=== PATIENT | female | born 1995 | race Caucasian/White ===

== ENCOUNTER 2017-01-19 18:37 | Emergency (ER) | payer OTHER ==
[2017-01-19 18:46] VITALS: BP 119/83; PULSE 108; TEMP 99.6; BMI 30.2
--- NOTE | 2017-01-19 20:12 | PDOC ---
History of Present Illness - General Chief Complaint: Abscess Boil Stated Complaint: BACK PAIN Time Seen by Provider: 01/19/17 19:41 History Source: Patient Exam Limitations: No Limitations - History of Present Illness Initial Comments: 01/19/17 20:01 Patient is a 21-year-old female, history of pilonidal cyst presents with pain to gluteal cleft. Recurrent pilonidal. No fever. Past Medical History: Denies. Allergies: No known allergies Medications: None Family History: Non-contributory Social History: Denies smoking, alcohol use, or IVDU Vital signs on arrival are notable for pulse of 108. Review of Systems GENERAL/CONSTITUTIONAL: No fever or chills. No weakness. No weight change. HEAD, EYES, EARS, NOSE AND THROAT: No change in vision. No ear pain or discharge. No sore throat. CARDIOVASCULAR: No chest pain or shortness of breath. RESPIRATORY: No cough, wheezing, or hemoptysis. GASTROINTESTINAL: No nausea, vomiting, diarrhea or constipation. No rectal bleeding. GENITOURINARY: No dysuria, frequency, or change in urination. MUSCULOSKELETAL: No joint or muscle swelling or pain. No neck pain. Pain to the gluteal cleft. SKIN : No rash or easy bruising. Painful area to the gluteal cleft, no edema, no fluctuance area is hard. HEMATOLOGIC/LYMPHATIC: No anemia, easy bleeding, or history of blood clots. No lymphadenopathy. ALLERGIC/IMMUNOLOGIC: No hives or skin allergy. No latex allergy. Physical Exam: GENERAL: The patient is awake, alert, and fully oriented, in no acute distress. HEAD: Normal with no signs of trauma. EYES: Pupils equal, round and reactive to light, extraocular movements intact, sclera anicteric, conjunctiva clear. ENT: Ears normal, nares patent, oropharynx clear without exudates. Moist mucous membranes. No uvula deviation NECK: Normal range of motion, supple without lymphadenopathy, JVD, or masses. LUNGS: Breath sounds equal, clear to auscultation bilaterally. No wheezes, and no crackles. HEART: Regular rate and rhythm, normal S1 and S2 without murmur, rub or gallop. ABDOMEN: Soft, nontender, normoactive bowel sounds. No guarding, no rebound. No masses. No bruising or abrasions RECTAL : Guaiac negative, normal rectal tone. No communication. There is erythema, pain with induration to the gluteal cleft + Pilonidal sinus. No fluctuance. MUSCULOSKELETAL: Normal range of motion, no edema. No clubbing or cyanosis. No cords, erythema, or tenderness. No CVA Tenderness with fist palpation. NEUROLOGICAL: Cranial nerves II through XII grossly intact. Normal speech, normal gait. SKIN: Warm, Dry, normal turgor, no rashes or lesions noted. Pain, erythema near gluteal cleft. Past History - Past Medical History Allergies/Adverse Reactions: Allergies Allergy/AdvReac Type Severity Reaction Status Date / Time No Known Allergies Allergy Verified 01/19/17 18:43 Home Medications: Ambulatory Orders Doxycycline Hyclate 100 mg PO BID #20 capsule 01/19/17 Oxycodone HCl/Acetaminophen [Percocet 5-325 mg Tablet] 1 tab PO Q4H #20 tablet MDD 6 01/19/17 - Psycho/Social/Smoking Cessation Hx Suicidal Ideation: No Smoking History: Never smoked Have you smoked in the past 12 months: No *Physical Exam - Vital Signs Last Vital Signs Temp Pulse Resp BP Pulse Ox 99.6 F 108 H 18 119/83 98 01/19/17 18:43 01/19/17 18:43 01/19/17 18:43 01/19/17 18:43 01/19/17 18:43 Medical Decision Making - Medical Decision Making 01/19/17 20:13 A/P : Patient with pilonidal, third time patient has had this has never been formally drained, spoke to Dr. Romero who will come in to see patient. 01/19/17 22:37 Dr Romero at bedside to drain, Consent obtained. Percocet one tab given IV heplock Doxycycline 100 mg IV 1 01/19/17 22:38 Follow-up instructions in care as per Dr. Romero. Patient discharged to return for wound care tomorrow. Discharged on Percocet and doxycycline I discussed the physical exam findings, ancillary test results and final diagnoses with the patient. I answered all of the patient's questions. The patient was satisfied with the care received and felt comfortable with the discharge plan and treatment plan. The patient will call to arrange follow-up and will return to the Emergency Department with any new, persistent or worsening symptoms. *DC/Admit/Observation/Transfer Diagnosis at time of Disposition: Pilonidal cyst - Discharge Dispostion Admit: No - Prescriptions Prescriptions: Doxycycline Hyclate 100 mg PO BID #20 capsule Oxycodone HCl/Acetaminophen [Percocet 5-325 mg Tablet] 1 tab PO Q4H #20 tablet MDD 6 - Referrals Referrals: Michel Soler MD [Primary Care Provider] - - Patient Instructions Printed Discharge Instructions: Pilonidal Cyst Additional Instructions: Instructions for care and follow up as per Dr. Romero - Post Discharge Activity Work/School Note: Back to Work
[2017-01-19] MEDS ORDERED: OXYCODONE/APAP 5/325MG COMBO TABLET ONE (20:28)
[2017-01-19] MEDS ORDERED: OXYCODONE/APAP 5/325MG COMBO TABLET PO ONE (20:28)
[2017-01-19] MEDS ORDERED: DOXYCYCLINE INJECTION 100 MG in DEXTROSE 5%-WATER - 100 ML IVPB ONE (21:00)
[2017-01-19] MEDS ORDERED: LIDOCAINE 1%/EPI 1:100000 (50 ML MULTI DOSE VIAL) ONE (21:45)
[2017-01-19] MEDS ORDERED: SODIUM BICARBONATE 2.4 MEQ/5 ML SDVIAL ONE (21:47)
[2017-01-19] MEDS ORDERED: SODIUM BICARBONATE 4.2% 5 MEQ/10 ML DISP.SYRIN IVPUSH ONE ×2 (22:06→23:08)
[2017-01-19] MEDS ORDERED: SODIUM BICARBONATE 8.4% - 50 ML ONE (22:07)
[2017-01-19] MEDS ORDERED: LIDOCAINE 1%/EPI 1:100000 (20 ML MULTI DOSE VIAL) INF ONE (23:07)
--- NOTE | 2017-01-19 23:41 | CONSULT ---
Consult Consult Specialty:: General Surgery Referred by:: Nicky Small Reason for Consultation:: pilonidal abscess - History of Present Illness Chief Complaint: pain and swelling at upper gluteal cleft History of Present Illness: 21yo healthy F with h/o pilonidal abscess twice in 2014, first time drained in ER (with needle), second time she thinks doctor just expressed pus by hand, now with third recurrence. Pain started to be significant two days ago, no actual drainage. + BMs, last yesterday, but hurts. No fever/chills, occasional nausea, no vomiting. Temp 99 in ER, no labs. Pt had been told if it came back, she might need to have it removed to keep it from happening again, but never actually pursued formal operation. - History Source History Provided By: Patient Limitations to Obtaining History: No Limitations - Past Medical History ...: No Dermatology: Yes: Other (pilonidal abscess x 2 before) - Past Surgical History Additional Surgical History: ER drainage of pilonidal in past - Alcohol/Substance Use Hx Alcohol Use: No History of Substance Use: reports: None - Smoking History Smoking history: Never smoked Have you smoked in the past 12 months: No - Social History ADL: Independent Home Medications - Allergies Allergies/Adverse Reactions: Allergies Allergy/AdvReac Type Severity Reaction Status Date / Time No Known Allergies Allergy Verified 01/19/17 18:43 - Home Medications Home Medications: Ambulatory Orders Doxycycline Hyclate 100 mg PO BID #20 capsule 01/19/17 Oxycodone HCl/Acetaminophen [Percocet 5-325 mg Tablet] 1 tab PO Q4H #20 tablet MDD 6 01/19/17 Home Medications (free text): none regularly Family Disease History - Family Disease History Family History: Unremarkable Review of Systems - Review of Systems Constitutional: denies: Chills, Fever Eyes: denies: Blurred Vision, Double Vision HENT: denies: Difficult Swallowing, Throat Pain Neck: denies: Decreased ROM, Swollen Glands Cardiovascular: denies: Chest Pain, Shortness of Breath Respiratory: denies: Cough, Wheezing Gastrointestinal: reports: Nausea. denies: Constipation, Diarrhea, Vomiting Genitourinary: reports: Menses (finishing now). denies: Dysuria Musculoskeletal: denies: Back Pain, Muscle Pain Integumentary: reports: Erythema, Lump Neurological: denies: Dizziness, Headache Hematology/Lymphatic: denies: Excessive Bleeding, Swollen Glands Physical Exam Vital Signs: Vital Signs Temperature 99.6 F 01/19/17 18:43 Pulse Rate 108 H 01/19/17 18:43 Respiratory Rate 18 01/19/17 18:43 Blood Pressure 119/83 01/19/17 18:43 O2 Sat by Pulse Oximetry (%) 98 01/19/17 18:43 Constitutional: Yes: Well Nourished, Calm, Mild Distress (secondary to pain) Eyes: Yes: Conjunctiva Clear, EOM Intact HENT: Yes: Atraumatic, Normocephalic Cardiovascular: Yes: Regular Rate and Rhythm. No: Murmur Respiratory: Yes: Regular, CTA Bilaterally Gastrointestinal: Yes: Soft. No: Tenderness ...Rectal Exam: Yes: Deferred Renal/: Yes: Menses Present Musculoskeletal: No: Back Pain, Joint Stiffness Extremities: No: Calf Tenderness, Cold Edema: No Integumentary: Yes: Erythema, Other (pilonidal area with ~0.5cm midline scar with possible pits just above and below, somewhat swollen and fluctuant centrally with 1-2cm of mild erythema to both sides, very tender R>L, + hair present, no drainage) Neurological: Yes: Alert, Oriented Problem List - Problems (1) Pilonidal cyst with abscess Assessment/Plan: pilonidal cyst with recurrent abscess pt given pain med and first dose antibiotic (Doxy) in ER explained to pt and mother need for drainage, wound packing, followup with plan for definitive operation once healing, possibly prior to complete wound closure R/B/A of incision and drainage discussed including bleeding and infection; evacuating pus; antibiotics alone with warm compresses and sitz baths pt agreeable to I&D in ER, informed consent signed procedure performed and tolerated well, wound packed and dressed keep dressing clean and dry until seen next pt to return Monday morning for first dressing change; family member may accompany her to learn packing changes ER to Rx Doxycycline and pain meds prn, pt to take pain med prior to coming for dressing change pt to call office to f/u next Monday in clinic to see Dr. Godwin/colorectal surgeon for wound check and definitive OR planning Thank you for the opportunity to participate in the care of this patient. Code(s): L05.01 - PILONIDAL CYST WITH ABSCESS
--- NOTE | 2017-01-20 00:05 | PROC ---
Incision and Drainage Indication/Location: pilonidal abscess (recurrent), upper gluteal cleft Risks and Benefits Explained: Yes Consent on Chart: Yes Betadine cleansed: Yes Anesthesia: 1% Lidocaine w/ Epi (with Na bicarb half and half x 30ml total, then 15ml of 1% lido + epi alone) Blade Size: 15 Drainage: foul-smelling, purulent, ~20ml Irrigated with Normal Saline: No (irrigated with remaining local anesthetic) Plain packing: Yes (1/ in ) Sterile Dressing Applied: Yes (gauze and tape over) - Remarks Remarks: elliptical sliver of skin removed to encompass previous scar and pit in midline ; manually probed to ensure loculations broken up, small pocket to right of midline, wound deep nearly to coccyx, additional small pocket at upper right; packed with ribbon gauze
== END 2017-01-19 23:15 | disposition home or self-care (01) ==
LOC: JERFT 18:37
PROC: 0H98XZZ Drainage of Buttock Skin, External Approach (ICD-10-PCS; principal; 2017-01-19)
PROC: 3E03329 Introduction of Other Anti-infective into Peripheral Vein, Percutaneous Approach (ICD-10-PCS; 2017-01-19)
DX: L05.01 Pilonidal cyst with abscess (principal)
CPT/HCPCS: 99281-25

== ENCOUNTER 2017-01-21 10:18 | Emergency (ER) | payer OTHER ==
[2017-01-21 10:28] VITALS: BP 143/67; PULSE 104; TEMP 98.2; BMI 30.2
--- NOTE | 2017-01-21 11:13 | PDOC ---
Suture Removal/Wound Check HPI - History of Present Illness Chief Complaint: Revisit,Wound Recheck Stated Complaint: FOLLOWUP/CYST Time Seen by Provider: 01/21/17 11:00 History Source: Yes: Patient Exam Limitations: Yes: No Limitations [facility] Date of Last ED visit: 01/19/17 (I & D pilondial cyst) - Previous ED Treatment Type of procedure performed on last visit: Yes: I&D of Abscess (pilonidal cyst by ) Tetanus Immunization: Yes: Up to Date Antibiotics Prescribed: Yes (doxycline ) - Onset of Previous Treatment Date of Occurence: 01/19/17 Past History - Travel Traveled outside of the country in the last 30 days: No Close contact w/someone who was outside of country & ill: No - Past Medical History Allergies/Adverse Reactions: Allergies No Known Allergies Allergy (Verified 01/21/17 10:28) Home Medications: Ambulatory Orders Doxycycline Hyclate 100 mg PO BID #20 capsule 01/19/17 Oxycodone HCl/Acetaminophen [Percocet 5-325 mg Tablet] 1 tab PO Q4H #20 tablet MDD 6 01/19/17 Ondansetron [Zofran Odt -] 4 mg SL Q8H PRN #9 od.tablet MDD 12 mg 01/21/17 General: Yes: no pertinent history - Social History Smoking Status: Never smoked Suture Removal/Wound Check PE - Physical Exam Laceration/Wound Check Symptoms: reports: Pain (at site of I & D pilondial cyst) Pain Intensity: 10 (at times ) Current Severity Level: Moderate Maximum Severity Level: Severe Comments: 01/21/17 11:46 at site of pilondial cyst I & D Pain radiates to: bilateral: Other Radiation location (at site of pilondial cyst I & D ) Comments: 01/21/17 11:[address] Romero she took out previous packing at pilondial cyst I & D site and cleansed and repacked DSD applied *Review of Systems - Review of Systems Able to Perform ROS?: Yes Constitutional: No: Symptoms Reported HEENTM: No: Symptoms Reported Respiratory: No: Symptoms reported Cardiac (ROS): No: Symptoms Reported : No: Symptoms Reported Integumentary: Yes: Other (at site of pilondial cyst I & D packing in place, dsd ) Procedures - Consent Consent obtained: From Patient - Additional Procedures Progress: 01/21/17 11:49 see consult note from Dr. Barry Medical Decision Making - Medical Decision Making 01/21/17 11:49 Pt. was seen here on 01/19/2017 for Pinondial recurrent cyst this being the third time it recurred. Consult was called with Dr. ROMERO, she did I & D, pain medication and doxycline ordered. Pt. was told to return here for wound check and packing removal. back and was to be notified when she got here. She reports that the area is very painful and that she feels slightly nauseous at times not related to when she takes Percocet. Could be from taking doxycycline. Patient denies any vomiting. Patient denies fever. Wound Check pilondial cyst I & D PLAN: Grandmother was instructed by Dr. Romero wound and was given all materials necessary Will give Zofran 4 mg sublingual every 8 hours as needed for nausea for the next 2 days Patient to continue with Percocet as previously prescribed for pain Patient to continue with antibiotics as previously ordered on 6:15 Patient to call on 01/23/2017 for appt here on 01/25/17 *DC/Admit/Observation/Transfer Diagnosis at time of Disposition: Admission for wound check of abscess - Discharge Dispostion Disposition: HOME Condition at time of disposition: Stable - Patient Instructions Additional Instructions: Call on 01/23/17 Dr. Romero take appointment for 01/25/2017 for clinic here Grandmother repeat packing wound as demonstrated by Dr. Romero after patient showers and dryudith area after repacking apply dry sterile dressing Continue with antibiotics as previously ordered and pain medication Return to emergency room if any fever, chills, worsening pain or any new symptoms develop Patient voiced understanding of discharge instructions and all questions were answered
--- NOTE | 2017-01-21 12:01 | CONSULT ---
Consult Consult Specialty:: General Surgery Referred by:: Francia Swift Reason for Consultation:: packing change from I&D /wound check - History of Present Illness Chief Complaint: recurrent pilonidal abscess History of Present Illness: 21yoF seen in ER night with third pilonidal abscess. Low grade temp, no labs drawn. I&D performed by me in ER with evacuation of pus and packed with 1/4" plain ribbon gauze. Pt returns for wound check/packing change. On Doxycycline, using percocet for pain, c/o some nausea but tolerating diet, having BMs. Accompanied today by grandmother, who plans to assist her with dressing/packing changes daily. - History Source History Provided By: Patient Limitations to Obtaining History: No Limitations - Past Medical History Dermatology: Yes: Other (pilonidal abscess x 2 before) - Alcohol/Substance Use Hx Alcohol Use: No History of Substance Use: reports: None - Smoking History Smoking history: Never smoked Have you smoked in the past 12 months: No - Social History Usual Living Arrangement: With Parent ADL: Independent Home Medications - Allergies Allergies/Adverse Reactions: Allergies Allergy/AdvReac Type Severity Reaction Status Date / Time No Known Allergies Allergy Verified 01/21/17 10:28 - Home Medications Home Medications: Ambulatory Orders Doxycycline Hyclate 100 mg PO BID #20 capsule 01/19/17 Oxycodone HCl/Acetaminophen [Percocet 5-325 mg Tablet] 1 tab PO Q4H #20 tablet MDD 6 01/19/17 Ondansetron [Zofran Odt -] 4 mg SL Q8H PRN #9 od.tablet MDD 12 mg 01/21/17 Family Disease History - Family Disease History Family History: Unremarkable Review of Systems - Review of Systems Constitutional: denies: Chills, Fever Eyes: denies: Blurred Vision, Double Vision HENT: denies: Nasal Congestion, Throat Pain Neck: denies: Lumps, Swollen Glands Cardiovascular: denies: Chest Pain, Shortness of Breath Respiratory: denies: Cough, Wheezing Gastrointestinal: reports: Nausea. denies: Abdominal Pain, Constipation, Diarrhea, Vomiting Genitourinary: reports: Menses (finished). denies: Burning, Dysuria, Frequency Musculoskeletal: denies: Back Pain, Muscle Pain Integumentary: reports: Incision. denies: Rash Neurological: reports: Headache (sometimes). denies: Dizziness Hematology/Lymphatic: denies: Excessive Bleeding, Swollen Glands Physical Exam Vital Signs: Vital Signs Temperature 98.2 F 01/21/17 10:25 Pulse Rate 104 H 01/21/17 10:25 Respiratory Rate 20 01/21/17 10:25 Blood Pressure 143/67 01/21/17 10:25 O2 Sat by Pulse Oximetry (%) 99 01/21/17 10:25 Constitutional: Yes: Well Nourished, Calm, Mild Distress (from pain) Cardiovascular: Yes: Regular Rate and Rhythm. No: Murmur Respiratory: Yes: Regular, CTA Bilaterally Gastrointestinal: Yes: Soft. No: Tenderness ...Rectal Exam: Yes: Deferred, Other (pilonidal dressing in place with blood- staining) Wound/Incision: Yes: Dressing Removed, Bleeding (small amount, stops with pressure), Unapproximated, Other (small bleb at upper left edge and moderate (~ 1cm) rose blister at superior right periwound present; packing removed from wound with serosanguineous drainage/staining. Small bleeding from wound edges, visible part of cavity appears carbonating stone cleaner than initially, no active drainage or pus still present; remains quite tender; incision about 2cm long, opens to about 0.5cm, cavity to about 3cm deep with more extension to right of midline). No: Draining Neurological: Yes: Alert, Oriented Problem List - Problems (1) Pilonidal cyst with abscess Assessment/Plan: s/p I&D 2 nights ago, here for packing change wound beginning to clean up; packing changed, redressed with gauze and tape over Pt's grandmother accompanied her and was taught how to do dressing/packing change daily Pt able to hold incision open for procedure Pt to begin daily shower tomorrow evening with packing removal before or in shower Grandmother will replace packing after and redress daily Pt to continue antibiotic, try half a percocet at a time if they make her too sleepy ER Rx Zofran ODT for nausea prn Pt will call office for f/u appt Monday with Dr. Godwin and myself - s dressing to be done by us Pt tolerated fairly well. Anticipate steady improvement. Code(s): L05.01 - PILONIDAL CYST WITH ABSCESS
== END 2017-01-21 12:35 | disposition home or self-care (01) ==
LOC: JERFT 10:18
DX: L05.01 Pilonidal cyst with abscess (principal)
CPT/HCPCS: 99281-25

== ENCOUNTER 2017-01-27 06:49 | Day surgery (SDC) | payer OTHER ==
[2017-01-27 07:12] VITALS: BMI 30.2
[2017-01-27] MEDS ORDERED: SODIUM CHLORIDE 1,000 ML IV STA (07:20)
--- NOTE | 2017-01-27 07:58 | PDOC ---
History of Present Illness - General Chief Complaint: Pain Stated Complaint: PAIN Time Seen by Provider: 01/27/17 07:19 History Source: Patient - History of Present Illness Timing/Duration: reports: other Past History - Past Medical History Allergies/Adverse Reactions: Allergies Allergy/AdvReac Type Severity Reaction Status Date / Time No Known Allergies Allergy Verified 01/27/17 08:13 Home Medications: Ambulatory Orders Doxycycline Hyclate 100 mg PO BID #20 capsule 01/19/17 Oxycodone HCl/Acetaminophen [Percocet 5-325 mg Tablet] 1 tab PO Q4H #20 tablet MDD 6 01/19/17 Ondansetron [Zofran Odt -] 4 mg SL Q8H PRN #9 od.tablet MDD 12 mg 01/21/17 Other medical history: Pt denies - Psycho/Social/Smoking Cessation Hx Anxiety: No Suicidal Ideation: No Smoking History: Never smoked Have you smoked in the past 12 months: No Information on smoking cessation initiated: No Hx Alcohol Use: No Drug/Substance Use Hx: No Substance Use Type: None *Physical Exam - Vital Signs Last Vital Signs Temp Pulse Resp BP Pulse Ox 98.3 F 66 20 117/73 98 01/27/17 07:07 01/27/17 07:07 01/27/17 07:07 01/27/17 07:07 01/27/17 07:07 ED Treatment Course - LABORATORY CBC & Chemistry Diagram: 01/27/17 07:46 01/27/17 07:46 Medical Decision Making - Medical Decision Making 01/27/17 07:52 21-year-old female, history of recurrent pilonidal abscess, s/p I&D of abscess last week by Dr Romero of surgery and now p/w worsening pain and draining to site. No f/c. See exam Recurrent pilonidal abscess S/P I&D by surgery w/ worsening sxs now -pain control -surgery c/s 01/27/17 08:17 Case d/w Dr Romero who states will take pt to the OR for wide excision/ debridement of cyst today. Pre-op labs pending 01/27/17 08:39 *DC/Admit/Observation/Transfer Diagnosis at time of Disposition: Pilonidal cyst with abscess - Discharge Dispostion Condition at time of disposition: Stable Admit: Yes - Referrals Referrals: Michel Soler MD [Primary Care Provider] -
[2017-01-27 08:09] LABS: BASOPHIL 0.8 % (0-2.0); EOSINOPHIL 3.1 % (0-4.5); MCH 27.2 pg (25.7-33.7); MCHC 32.3 g/dl (32.0-36.0); MEAN CELL VOLUME 84.3 fl (80-96); NEUTROPHILS 47.1 % (42.8-82.8); PLATELET COUNT 301 K/MM3 (134-434); RDW 12.9 % (11.6-15.6); WHITE BLOOD COUNT 8.2 K/mm3 (4.0-10.0)
--- NOTE | 2017-01-27 08:18 | HP ---
Admitting History and Physical - Primary Care Physician PCP: Michel Soler - Admission Chief Complaint: recurrent pilonidal abscess - more pain and continuing drainage History of Present Illness: 21yo generally healthy F seen in ER last night for I&D of third pilonidal abscess. Started on Doxycycline. First packing change done Monday and family has been doing since. Seen in clinic Monday and noted to still have drainage , though less pain, and some necrotic edges to the wound. Recommended formal operation for wide excision and debridement/drainage. Pt was to consider but return to ER if pain and/or drainage worsened. She is still having pain and drainage and returned this morning. She is agreeable now to operation to open it further for definitive treatment. She is NPO since last night's dinner. No fever/chills. No nausea/vomiting. + normal BMs, last this morning. History Source: Patient Limitations to Obtaining History: No Limitations - Past Medical History ...LMP: 01/16/17 (finished last ) ...: No Dermatology: Yes: Other (pilonidal abscess x 2 before) - Past Surgical History Additional Past Surgical History: I&D 01/19 pilonidal by m[place] - Smoking History Smoking history: Never smoked Have you smoked in the past 12 months: No - Alcohol/Substance Use Hx Alcohol Use: No History of Substance Use: reports: None - Social History Usual Living Arrangement: Yes: With Parent ADL: Independent Home Medications - Allergies Allergies/Adverse Reactions: Allergies Allergy/AdvReac Type Severity Reaction Status Date / Time No Known Allergies Allergy Verified 01/21/17 10:28 - Home Medications Home Medications: Ambulatory Orders Doxycycline Hyclate 100 mg PO BID #20 capsule 01/19/17 Oxycodone HCl/Acetaminophen [Percocet 5-325 mg Tablet] 1 tab PO Q4H #20 tablet MDD 6 01/19/17 Ondansetron [Zofran Odt -] 4 mg SL Q8H PRN #9 od.tablet MDD 12 mg 01/21/17 Family Disease History - Family Disease History Family History: Unremarkable Review of Systems - Review of Systems Constitutional: denies: Chills, Fever Eyes: denies: Blurred Vision, Double Vision HENT: denies: Difficult Swallowing, Throat Pain Neck: denies: Swollen Glands, Tenderness Cardiovascular: denies: Chest Pain, Palpitations Respiratory: denies: Cough, SOB Gastrointestinal: denies: Abdominal Pain, Constipation, Diarrhea, Nausea, Vomiting Genitourinary: denies: Burning, Dysuria Musculoskeletal: denies: Joint Pain, Muscle Pain Integumentary: reports: Incision (at sacral area, small opening into moderate cavity, gauze over now as pt removed packing to shower before coming; tender, small necrotic spots at upper left and lower right slightly smaller, cannot appreciate internal character), Wound Neurological: denies: Dizziness, Headache Hematology/Lymphatic: denies: Excessive Bleeding, Swollen Glands Pain Intensity: 5 Physical Examination Vital Signs: Vital Signs Temperature 98.3 F 01/27/17 07:07 Pulse Rate 66 01/27/17 07:07 Respiratory Rate 20 01/27/17 07:07 Blood Pressure 117/73 01/27/17 07:07 O2 Sat by Pulse Oximetry (%) 98 01/27/17 07:07 Constitutional: Yes: Well Nourished, No Distress, Calm Eyes: Yes: Conjunctiva Clear, EOM Intact HENT: Yes: Atraumatic, Normocephalic Cardiovascular: Yes: Regular Rate and Rhythm. No: Murmur Respiratory: Yes: Regular, CTA Bilaterally Gastrointestinal: Yes: Normal Bowel Sounds, Soft. No: Tenderness ...Rectal Exam: Yes: Deferred, Other (pilonidal wound with small opening, moderate cavity, some necrotic patches at edges, needs further opening) Musculoskeletal: No: Back Pain, Joint Swelling Extremities: No: Cold, Erythema Edema: No Peripheral Pulses WNL: Yes Integumentary: Yes: Incision (see above). No: Rash, Tattoos Wound/Incision: Yes: Open to air, Draining (some serosanguineous staining on gauze), Unapproximated, Other (in need of further opening). No: Bleeding Neurological: Yes: Alert, Oriented Labs: cbc, bmp, preg pending Problem List - Problems (1) Pilonidal cyst with abscess Assessment/Plan: Pt POD#8 from I&D of pilonidal abscess, opening is very small, cavity still moderate size and draining some serosanguineous fluid on dressings. Still quite painful. In need of further opening and formal debridement/excision for definitive treatment and to allow healing. Discussed R/B/A of wide excision and debridement of infected pilonidal cyst with patient, including bleeding, infection and pain, and she agrees to OR under general anesthesia. Will give this am's dose of Doxy preop. She will need to continue dressing changes postop , pain meds prn, stool softener prn and few more doses antibiotic. Pt's mother present and also understands plan. Code(s): L05.01 - PILONIDAL CYST WITH ABSCESS
[2017-01-27 08:21] LABS: INR 1.06 (0.82-1.09); PROTHROMBIN TIME (PATIENT) 11.7 SEC (9.98-11.88)
--- NOTE | 2017-01-27 08:32 | PDOC ---
*Physical Exam - Vital Signs Last Vital Signs Temp Pulse Resp BP Pulse Ox 98.2 F 80 16 122/65 100 01/27/17 08:12 01/27/17 08:12 01/27/17 08:12 01/27/17 08:30 01/27/17 08:12 ED Treatment Course - LABORATORY CBC & Chemistry Diagram: 01/27/17 07:46 01/27/17 07:46 - ADDITIONAL ORDERS Additional order review: 01/27/17 07:46 RBC 4.96 MCV 84.3 MCHC 32.3 RDW 12.9 MPV 8.0 Neutrophils % 47.1 Lymphocytes % 42.2 H Monocytes % 6.8 Eosinophils % 3.1 Basophils % 0.8 - Medications Given in the ED: ED Medications Discontinued Medications Generic Name Dose Route Start Last Admin Trade Name Freq PRN Reason Stop Dose Admin Sodium Chloride 1,000 mls @ 1,000 mls/hr 01/27/17 07:20 01/27/17 08:30 Normal Saline - IV 01/27/17 08:19 1,000 mls/hr ASDIR STA Administration *DC/Admit/Observation/Transfer Diagnosis at time of Disposition: Pilonidal cyst with abscess - Discharge Dispostion Condition at time of disposition: Stable Admit: Yes - Referrals Referrals: Michel Soler MD [Primary Care Provider] - - Patient Instructions - Post Discharge Activity
[2017-01-27 08:33] LABS: ALBUMIN 4.1 g/dl (3.4-5.0); ANION GAP 9 (8-16); BILIRUBIN,TOTAL 0.4 mg/dL (0.2-1.0); CALCIUM 9.2 mg/dL (8.5-10.1); CO2 28 mmol/L (21-32); CREATININE 0.6 mg/dL (0.55-1.02); GLUCOSE,RANDOM 76 mg/dL (74-106); SGPT/ALT 22 U/L (12-78); TOT PROT 7.4 g/dl (6.4-8.2)
[2017-01-27] MEDS ORDERED: DOXYCYCLINE HYCLATE 100 MG VIAL ONE (08:33)
[2017-01-27 08:34] LABS: ALK PHOS 79 U/L (45-117)
[2017-01-27 08:40] LABS: SGOT/AST 20 U/L (15-37)
--- NOTE | 2017-01-27 08:41 | PDOC ---
*Physical Exam - Vital Signs Last Vital Signs Temp Pulse Resp BP Pulse Ox 98.2 F 80 16 122/65 100 01/27/17 08:12 01/27/17 08:12 01/27/17 08:12 01/27/17 08:30 01/27/17 08:12 ED Treatment Course - LABORATORY CBC & Chemistry Diagram: 01/27/17 07:46 01/27/17 07:46 - ADDITIONAL ORDERS Additional order review: Laboratory Results 01/27/17 07:46 Sodium 141 Potassium 4.5 Chloride 104 Carbon Dioxide 28 Anion Gap 9 BUN 10 Creatinine 0.6 Creat Clearance w eGFR > 60 Random Glucose 76 Calcium 9.2 Total Bilirubin 0.4 AST 20 ALT 22 Alkaline Phosphatase 79 Total Protein 7.4 Albumin 4.1 01/27/17 07:46 RBC 4.96 MCV 84.3 MCHC 32.3 RDW 12.9 MPV 8.0 Neutrophils % 47.1 Lymphocytes % 42.2 H Monocytes % 6.8 Eosinophils % 3.1 Basophils % 0.8 - Medications Given in the ED: ED Medications Discontinued Medications Generic Name Dose Route Start Last Admin Trade Name Freq PRN Reason Stop Dose Admin Sodium Chloride 1,000 mls @ 1,000 mls/hr 01/27/17 07:20 01/27/17 08:30 Normal Saline - IV 01/27/17 08:19 1,000 mls/hr ASDIR STA Administration Medical Decision Making - Medical Decision Making 01/27/17 08:41 Pt seen by Midlevel Provider under my direct supervision I agree with plan as outlined by Midlevel Provider *DC/Admit/Observation/Transfer Diagnosis at time of Disposition: Pilonidal cyst with abscess - Discharge Dispostion Condition at time of disposition: Stable - Referrals Referrals: Michel Soler MD [Primary Care Provider] - - Patient Instructions - Post Discharge Activity
[2017-01-27] MEDS ORDERED: DOXYCYCLINE INJECTION 100 MG in DEXTROSE 5%-WATER - 100 ML IVPB ONE (09:00)
[2017-01-27] MEDS ORDERED: LIDOCAINE HCL 1%, 10 MG/ML (20ML VIAL) ONE (09:27)
[2017-01-27] MEDS ORDERED: BUPIVACAINE HCL/PF 0.5% (5MG/ML) 10 ML VIAL ONE (09:27)
[2017-01-27] MEDS ORDERED: LIDOCAINE HCL/PF 2% SDV 5ML VIAL ONE (09:38)
[2017-01-27] MEDS ORDERED: MIDAZOLAM HCL 2 MG/2 ML SINGLE DOSE VIAL ONE (09:38)
[2017-01-27] MEDS ORDERED: SUCCINYLCHOLINE CHLORIDE 200 MG/10 ML VIAL ONE (09:38)
[2017-01-27] MEDS ORDERED: DEXAMETHASONE SOD PHOSPHATE 4 MG/1 ML VIAL ONE (09:38)
[2017-01-27] MEDS ORDERED: PROPOFOL 20 ML ONE (09:38)
[2017-01-27] MEDS ORDERED: KETOROLAC TROMETHAMINE 30 MG/1 ML VIAL ONE (10:09)
[2017-01-27] MEDS ORDERED: oxyCODONE HCL 5 MG TABLET PO PRN (10:40)
[2017-01-27] MEDS ORDERED: ACETAMINOPHEN 325 MG TABLET (FP) PO PRN (10:40)
[2017-01-27] MEDS ORDERED: ONDANSETRON 4 MG/2 ML VIAL IVPUSH PRN (10:40)
[2017-01-27] MEDS ORDERED: BUPIVACAINE HCL/PF 0.5% (5MG/ML) 10 ML VIAL IJ ONE (10:43)
[2017-01-27] MEDS ORDERED: LIDOCAINE HCL 1%, 10 MG/ML (20ML VIAL) IJ ONE (10:43)
--- NOTE | 2017-01-27 10:57 | OP ---
Operative Note - Note: Operative Date: 01/27/17 Pre-Operative Diagnosis: infected pilonidal cyst Operation: wide local excision and debridement of infected pilonidal cyst Findings: cavity with some extension/undermining to upper right and lower left, mucoid necrotic tissue lining noble, no iggy pus or hair Post-Operative Diagnosis: Same as Pre-op Surgeon: Guilherme Romero Upper Shaper: Chad Godwin Anesthesiologist/DAMPER WORKER: Stefany Barrera Anesthesia: General, Local (30ml 1% lido + 0.5% marcaine) Specimens Removed: small piece skin/subcutaneous tissue (not sent) Estimated Blood Loss (mls): 10 Instrument used (Debridements only): cautery for tissue removal, gauze on noble of cavity Fluid Volume Replaced (mls): 400 Operative Report Dictated: Yes
[2017-01-27 12:08] VITALS: TEMP 97.5
[2017-01-27 14:25] VITALS: BP 115/72; PULSE 92
--- NOTE | 2017-01-27 14:36 | OP ---
DATE OF OPERATION: 01/27/2017 PREOPERATIVE DIAGNOSIS: Infected pilonidal cyst. POSTOPERATIVE DIAGNOSIS: Infected pilonidal cyst. PROCEDURE: Wide local excision and debridement of infected pilonidal cyst ( complex incision and drainage). SURGEON: Guilherme Romero MD FLAKE DRIER: Chad Godwin MD ANESTHESIA: General endotracheal plus local (30 mL of 1% lidocaine plus 0.5% Marcaine). ESTIMATED BLOOD LOSS: Ten milliliters. FLUIDS: Crystalloid 400 mL. SPECIMEN: A small piece of skin and subcutaneous tissue was excised, but not sent to Pathology. FINDINGS: A cyst cavity with some extension and undermining to the upper right and lower left with mucoid, necrotic tissue lining the noble. There was no iggy pus or hair encountered, but necrotic skin and subcutaneous tissue was debrided both mechanically and excisionally. DISPOSITION: Stable and extubated, to PACU. INDICATIONS FOR PROCEDURE: The patient is a 21-year-old female, generally healthy, who initially presented to the emergency room just over a week ago with her third episode of a pilonidal abscess in the last several years. She had recently eaten, thus drainage under general anesthesia was not possible at the time and was undertaken under local anesthesia. The wound was then packed with 1/4-inch gauze. The patient returned for first dressing change 2 days later and a family member continued dressings at home. She was seen in clinic on Monday of this week and the wound noted to be continuing to drain seropurulent discharge. She still had pain, and the opening was quite small compared to the evident underlying cavity. It was determined that she was truly in need of further operative debridement, but she initially chose to consider this and promised to return to the emergency room if her condition worsened in the meantime. She did return to the emergency room, this morning, complaining of continued pain and drainage, and stated that she was ready to have an operation for further debridement and opening of the area. Risks, benefits and alternatives of the procedure were discussed and the patient signed informed consent for a wide local excision and debridement of infected pilonidal cyst. She was taken to the operating room where she remained supine on her stretcher and received her scheduled morning dose of doxycycline via IV. After induction and intubation by Anesthesia on her stretcher, she was rolled over onto the operating room table in a prone position and padded appropriately at all pressure points. The sacral area was clipped of hair, prepped with Betadine and draped in sterile fashion. There appeared to be a fairly small opening initially evident over the larger underlying cavity. There was a necrotic skin patch at the upper right edge just adjacent to the opening, and a smaller spot at the lower left. Local anesthetic was then infiltrated around the edges of the anticipated cavity, a total of 20 mL used initially. At the end of the procedure, an additional 10 mL was used to infiltrate the base and bottom of the wound. Initially, the tip of a clamp was used to probe the cavity, and then manual digital probing with a fingertip determined that there were some soft spots extending both to the upper right and the lower left with some necrotic tissue in need of debridement. Cautery was used to excise a small , less than 1 square centimeter portion of skin and subcutaneous tissue from the upper right edge of the incision, including part of the skin bridge to the necrotic skin patch. The incision was then also opened over a fingertip along the mid-to- lower left aspect extending laterally, to open fully the side extent of the cavity there. Gauze was used for mechanical debridement of the noble of the cavity and removing as much of the mucoid, necrotic tissue lining this area as possible. There was no iggy pus encountered. There were no clumps of hair encountered. Bleeding was controlled with electrocautery where necessary. Once the full extent of the cavity had been defined and was opened for facilitation of easy packing, the cavity was irrigated copiously with saline solution. The remainder of the local anesthetic as noted was infiltrated along the base and edges of the wound. Pressure was held with the gauze for several minutes to achieve hemostasis from the local anesthetic needle holes. The cavity was then gently packed with a single, saline-dampened 4 x 4 gauze sponge. This was covered with additional dry gauze folded and secured in place with silk tape. The patient was cleansed of the Betadine, was rolled back onto her stretcher, still intubated, where she was then appropriately awakened and extubated by Anesthesia. Dr. Godwin assisted during the case, both with cauterization and mechanical debridement. Counts were correct at the end of the case. The patient was then taken to the recovery room in stable condition, having tolerated the procedure well. Guilherme Romero M.D. [id number] MTDD
== END 2017-01-27 14:00 | disposition home or self-care (01) ==
LOC: JER 06:49 → JASUSAT 08:33 → JER 08:40 → JASUSAT 14:00
PROVIDERS: ATTEND Surgery
PROC: 0JB90ZZ Excision of Buttock Subcutaneous Tissue and Fascia, Open Approach (ICD-10-PCS; principal; 2017-01-27 09:00)
DX: L05.01 Pilonidal cyst with abscess (principal)
CPT/HCPCS: 36415; 80053; 84703; 85025; 85610; 86850; 86900; 86901; 94760; 99281-25

== ENCOUNTER 2020-07-13 00:52 | Emergency (ER) | payer BC, OTHER ==
[2020-07-13 02:03] VITALS: BP 114/74; PULSE 68; TEMP 97.9; BMI 32.8
== END 2020-07-13 03:00 | disposition home or self-care (01) ==
LOC: JER 00:52
DX: F41.9 Anxiety disorder, unspecified (principal)
CPT/HCPCS: 71046-TC-FY; 93005; 93010; 99284-25